=== PATIENT | male | born 1940 | race Caucasian/White ===

== ENCOUNTER 2016-07-25 15:54 | Emergency (ER) | payer OTHER ==
[~2016-07-25] VITALS: Ht 177.8 cm; Wt 93.0 kg
[~2016-07-25 15:54] MED LIST: ADULT LOW DOSE81 M1 PO; AMOXICILLIN250 MG PO; ASPIRIN EC325 M1 PO; AUGMENTIN875 MG PO; AVODART0.5 MG PO; Acyclovir PO; BACTRIM,SEPT1 TABLET PO; Bactrim,Septra DS 80 PO; CLOBETASOL EMOL45 GM TP; CUBICIN500 MG/10 IV; DIABETA,MICRONAS5 MG PO; DIABETA5 MG PO; EFFIENT10 MG PO; Effient PO; GLYBURIDE5 MG PO; HUMULIN R100 UNITS/ SC; HYTRIN5 MG PO; INSULIN ISOPHANE SC; INSULIN REGULAR SC; Keflex PO; LIPITOR40 MG PO; LISINOPRIL2.5 MG PO; METOPROLOL SUCC25 MG PO; NASONEX17 GM BOTH NARES; NASONEX17 GM NS; NEXIUM40 MG PO; NOVOLIN,HU100 UNITS/ SC; NOVOLOG MI100 UNIT/M SC; OXYCONTIN10 MG PO; OxyCONTIN PO; XANAX0.5 MG PO; Xanax PO; ZESTRIL,PRINIVI10 M1 PO; ZESTRIL,PRINIVI10 MG PO; ZOVIRAX400 MG PO
[2016-07-25 17:48] LABS: HEMATOCRIT 39.7 % (38.0-50.0); MCHC 33.5 G/DL (30.0-36.0); MCV 89.6 FL (86-99); MEAN PLAT.VOLUME 10.1 uM^3 (9.0-12.4); PLATELET COUNT 185 K/uL (156-360); RBC DIS.WIDTH-CV 12.5 % (11.8-14.6); RBC DIS.WIDTH-SD 41.2 % (39-53); RED BLOOD COUNT 4.43 M/uL (4.00-5.50); WHITE BLOOD COUNT 7.3 K/uL (4.1-10.2)
[2016-07-25 18:00] LABS: CHLORIDE 108 mEq/L (99-109); POTASSIUM 4.4 mEq/L (3.7-5.4); SODIUM 140 mEq/L (136-147)
[2016-07-25 18:02] LABS: GLUCOSE 103 mg/dL (70-99)
[2016-07-25 18:04] LABS: ANION GAP 9 MEQ/L (2-14)
[2016-07-25 18:06] LABS: GFR ESTIMATE (CALCULATED) 57 mL/min/
[2016-07-25 18:07] LABS: UREA NITROGEN (BUN) 21 mg/dL (9-23)
[2016-07-25 18:16] LABS: TROP-I INTERPRETATION NEGATIVE; TROPONIN-I < 0.01 ng/mL (0.0-0.30)
[2016-07-25] MEDS ORDERED: ACETAMINOPHEN500 MG PO (19:13)
[2016-07-25 19:38] VITALS: BP 157/67
== END 2016-07-25 19:39 | disposition home or self-care (01) ==
LOC: EME → EDBD 15:54 → EME 19:39
PROVIDERS: Emergency Medicine
DX: S20.219A Contusion of unspecified front wall of thorax, initial encounter (principal); S70.12XA Contusion of left thigh, initial encounter; S30.1XXA Contusion of abdominal wall, initial encounter; V49.40XA Driver injured in collision with unspecified motor vehicles in traffic accident, initial encounter; E11.65 Type 2 diabetes mellitus with hyperglycemia; Z79.4 Long term (current) use of insulin; I25.10 Atherosclerotic heart disease of native coronary artery without angina pectoris; Z79.01 Long term (current) use of anticoagulants; Z79.82 Long term (current) use of aspirin; I10 Essential (primary) hypertension; E78.00 Pure hypercholesterolemia, unspecified; Z95.5 Presence of coronary angioplasty implant and graft
CPT/HCPCS: 71260; 74177; 80048; 84484; 85027; 93005; 99281; 99285; J7030